=== PATIENT | female | born 1975 | race Caucasian/White ===

== ENCOUNTER 2022-12-31 05:57 | Day surgery (SDC) | payer OTHER ==
[2022-12-31 06:28] LABS: HCG URINE TEST NEGATIVE (NEGATIVE)
[2022-12-31] MEDS ORDERED: Lactated Ringers 1,000 ML IV SCH (06:30)
[2022-12-31] MEDS ORDERED: DIPRIVAN 200 MG/20 ML IV ONE ×2 (07:01→07:25)
[2022-12-31] MEDS ORDERED: Versed 2 MG/2 ML Injection ONE (07:01)
[2022-12-31] MEDS ORDERED: Xylocaine-Mpf 2% 5 Ml Vial ONE (07:01)
[2022-12-31 08:17] VITALS: BP 113/75; PULSE 79; O2SAT 95
--- NOTE | 2022-12-31 08:25 | OP ---
SURGERY DATE/TIME: 12/31/2022 0708 PREOPERATIVE DIAGNOSIS: Screening colonoscopy. POSTOPERATIVE DIAGNOSES: 1) Sigmoid colon polyp. 2) Diverticulosis. PROCEDURE: Colonoscopy. SURGEON: Nadir King M.D. ANESTHESIA: MAC by Hoang Mulligan CRNA. ESTIMATED BLOOD LOSS: Minimal. SPECIMENS: Hot forceps polypectomy from distal sigmoid colon. DESCRIPTION OF PROCEDURE: After informed written consent was obtained, the patient was taken to the endoscopy suite. She was placed in left lateral decubitus position and anesthesia was titrated to desired level of consciousness. Digital rectal exam showed normal sphincter tone and no internal lesions. The scope was inserted into the rectum and sequentially the entire colonic mucosa was traversed. The level of cecum was reached and verified with direct visualization of the ileocecal valve. Upon withdrawal scattered diverticula were noted. In the distal sigmoid colon there was a small sessile polyp which was grasped with forceps, cauterized and removed and sent to pathology. No other lesions were encountered. Prior to withdrawal retroflexion was performed and showed no internal lesions. The scope was removed. The patient was transferred to the recovery room in good condition.
== END 2022-12-31 08:15 | disposition home or self-care (01) ==
LOC: SDC 05:57
PROVIDERS: ATTEND Family Medicine
DX: Z12.11 Encounter for screening for malignant neoplasm of colon (principal); K63.5 Polyp of colon; K57.30 Diverticulosis of large intestine without perforation or abscess without bleeding
CPT/HCPCS: 36415; 81025; 88305; J2250; J2704

== ENCOUNTER 2023-01-07 06:43 | Emergency (ER) | payer OTHER ==
--- NOTE | 2023-01-07 07:30 | ERPHSYRPT ---
- History of Present Illness Time Seen by Provider: 01/07/23 07:42 Historian: patient Exam Limitations: no limitations Patient Subjective Stated Complaint: pt states while here at work she began having midsternal chest pain, denies radiation of pain. describes as stabbing pain. c/o nausea and "feeling hot all over". Triage Nursing Assessment: pt alert and oriented, answers questions approp. pt ambulates into room with steady gait noted. respirations nonlabored with lungs cta bilat. skin warm and dry. heart rate 100 on monitor, sinus rhythm. Physician History: Patient is a 47-year-old female presents to our ED with chest pain. Patient was at work when pain started. Pain described as a stabbing sensation it is pr imarily substernal. No radiation. Pain is associated with nausea. No vomiting. Patient states she also felt hot. No diaphoresis. Patient has a history of gastritis. She denies a history of GERD. No known heart conditions. Symptoms are moderate in intensity. No specific worsening or improving factors. Patient voices no other complaints or concerns at this time. Portions of this note were created with voice recognition technology. There may be grammatical, spelling, punctuation or sound alike errors Timing/Duration: today Activities at Onset: none Quality: stabbing Location: substernal Chest Pain Radiation: no radiation Severity of Pain-Max: moderate Severity of Pain-Current: mild Modifying Factors: Improves With: nothing Associated Symptoms: nausea Prior Chest Pain/Cardiac Workup: no prior chest pain Nitro Today/Relief: no nitro taken today Aspirin Treatment Today: no aspirin today (Patient took Excedrin which contains aspirin) Allergies/Adverse Reactions: lisinopril Adverse Reaction (Unknown, Verified 01/07/23 06:56) Cough Home Medications: PANTOPRAZOLE 40 mg Tablet [Protonix 40MG Tablet] 40 mg PO DAILY 06/23/15 [History] Topiramate 25 mg [Topamax 25 MG] 50 mg PO DAILY 06/23/15 [History] Bupropion HCl 150 mg Sr [Wellbutrin SR 150 MG] 150 mg PO DAILY 12/02/22 [History] Clonazepam [Klonopin] 1 mg PO HS PRN 12/02/22 [History] Ferrous Sulfate 325 mg [Feosol 325 mg] 325 mg PO DAILY 12/02/22 [History] Losartan Potassium 50 mg [Cozaar 50 MG] 100 mg PO DAILY 12/02/22 [History] Naproxen 500 mg [Naprosyn 500 MG] 500 mg PO DAILY PRN PRN 12/02/22 [History] Paroxetine HCl 20 mg [Paxil 20 MG] 20 mg PO DAILY 12/02/22 [History] Semaglutide [Ozempic] 0.5 mg SQ WEEKLY 12/02/22 [History] Hx Tetanus, Diphtheria Vaccination/Date Given: No Hx Influenza Vaccination/Date Given: Yes Hx Pneumococcal Vaccination/Date Given: No Immunizations Up to Date: No Travel Risk - International Travel Have you traveled outside of the country in past 3 weeks: No - Coronavirus Screening Are you exhibiting any of the following symptoms?: No Close contact with a COVID-19 positive Pt in past 14-21 Days: No - Vaccine Status Have you recieved a Covid-19 vaccination: Yes [employer] - Review of Systems Constitutional: No Symptoms, No Fever, No Chills Eyes: No Symptoms Ears, Nose, & Throat: No Symptoms Respiratory: No Symptoms, No Cough, No Dyspnea Cardiac: No Symptoms, No Chest Pain, No Edema, No Syncope Abdominal/Gastrointestinal: No Symptoms, No Abdominal Pain, No Nausea, No Vomiting, No Diarrhea Genitourinary Symptoms: No Symptoms, No Dysuria Musculoskeletal: No Symptoms, No Back Pain, No Neck Pain Skin: No Symptoms, No Rash Neurological: No Symptoms, No Dizziness, No Focal Weakness, No Sensory Changes Psychological: No Symptoms Endocrine: No Symptoms Hematologic/Lymphatic: No Symptoms Immunological/Allergic: No Symptoms All Other Systems: Reviewed and Negative - Past Medical History Pertinent Past Medical History: Yes Neurological History: Migraines ENT History: No Pertinent History Cardiac History: Hypertension Respiratory History: No Pertinent History Endocrine Medical History: No Pertinent History Musculoskeletal History: No Pertinent History GI Medical History: GERD, Gallbladder Disease, Ulcer, Other History: No Pertinent History Psycho-Social History: Anxiety, Depression Female Reproductive Disorders: No Pertinent History - Past Surgical History Past Surgical History: Yes Neuro Surgical History: No Pertinent History Cardiac: No Pertinent History Respiratory: No Pertinent History Gastrointestinal: Cholecystectomy Genitourinary: No Pertinent History Musculoskeletal: No Pertinent History Female Surgical History: No Pertinent History - Social History Smoking Status: Never smoker Exposure to second hand smoke: No Drug Use: none Patient Lives Alone: No - Female History Hx Last Menstrual Period: last month Hx Now: No - Nursing Vital Signs Nursing Vital Signs: Initial Vital Signs Temperature 97.8 F 01/07/23 06:44 Pulse Rate 100 H 01/07/23 06:44 Respiratory Rate 18 01/07/23 06:44 Blood Pressure 144/92 01/07/23 06:44 O2 Sat by Pulse Oximetry 100 01/07/23 06:44 Pain Scale Pain Intensity 0 - Physical Exam General Appearance: no apparent distress, alert Eye Exam: PERRL/EOMI, eyes nml inspection Ears, Nose, Throat Exam: normal ENT inspection, TMs normal, pharynx normal, moist mucous membranes Neck Exam: normal inspection, non-tender, supple, full range of motion Respiratory Exam: normal breath sounds, lungs clear, airway intact, No respiratory distress Cardiovascular Exam: regular rate/rhythm, normal heart sounds, normal peripheral pulses Gastrointestinal/Abdomen Exam: soft, No tenderness, No mass Back Exam: normal inspection, No CVA tenderness, No vertebral tenderness Extremity Exam: normal inspection, normal range of motion Neurologic Exam: alert, oriented x 3, cooperative, normal mood/affect, sensation nml, No motor deficits Skin Exam: normal color, warm, dry Lymphatic Exam: No adenopathy SpO2 Interpretation: normal SpO2: 98 O2 Delivery: Room Air - Course Nursing assessment & vital signs reviewed: Yes EKG Interpreted by Me: RATE (85), Sinus Rhythm, NORMAL AXIS, NORMAL INTERVALS - Radiology Exams Chest X-ray Interpretation: Teleradiologist Report (Normal chest x-ray) Ordered Tests: Active Orders 24 hr Category Date Time Status Band Cutter STAT Care 01/07/23 07:21 Active EKG-ER Only STAT Care 01/07/23 07:20 Active IV Insertion STAT Care 01/07/23 07:20 Active Pulse Oximetry (ED) STAT Care 01/07/23 07:20 Active CHEST 1 VIEW (PORTABLE) Stat Exams 01/07/23 07:21 Completed CBC W DIFF Stat Lab 01/07/23 07:00 Completed CMP Stat Lab 01/07/23 07:00 Completed D-DIMER QUANTITATIVE Stat Lab 01/07/23 07:00 Completed HCG QUALITATIVE, URINE Stat Lab 01/07/23 08:12 Completed NT PRO BNPII Stat Lab 01/07/23 07:00 Completed TROPONIN Q4H Lab 01/07/23 07:00 Completed TROPONIN Q4H Lab 01/07/23 09:30 Completed TROPONIN Q4H Lab 01/07/23 15:30 Ordered UA W/RFX UR CULTURE Stat Lab 01/07/23 08:12 Completed Lab/Rad Data: Laboratory Result Diagrams 01/07/23 07:00 01/07/23 07:00 Laboratory Results 01/07/23 01/07/23 01/07/23 Range/Units 09:30 08:12 08:12 WBC (4.0-10.5) x10^3/uL RBC (4.1-5.4) x10^6/uL Hgb (12.0-16.0) g/dL Hct (35-47) % MCV (78-100) fL MCH (26-32) pg MCHC (32-36) g/dL RDW (11.5-14.0) % Plt Count (150-450) x10^3/uL MPV (7.5-11.0) fL Gran % (36.0-66.0) % Immature Gran % (Auto) (0.00-0.4) % Nucleat RBC Rel Count (0.00-0.1) % Eos # (Auto) (0-0.5) x10^3/uL Immature Gran # (Auto) (0.00-0.03) x10^3u/L Absolute Lymphs (auto) (1.0-4.6) x10^3/uL Absolute Monos (auto) (0.0-1.3) x10^3/uL Absolute Nucleated RBC (0.00-0.01) x10^3u/L Lymphocytes % (24.0-44.0) % Monocytes % (0.0-12.0) % Eosinophils % (0.00-5.0) % Basophils % (0.0-0.4) % Absolute Granulocytes (1.4-6.9) x10^3/uL Basophils # (0-0.4) x10^3/uL D-Dimer (0.0-0.50) mg/L Sodium (137-145) mmol/L Potassium (3.5-5.1) mmol/L Chloride (98-107) mmol/L Carbon Dioxide (22-30) mmol/L Anion Gap (5-15) MEQ/L BUN (7-17) mg/dL Creatinine (0.52-1.04) mg/dL Estimated GFR ML/MIN Glucose (74-106) mg/dL Calcium (8.4-10.2) mg/dL Total Bilirubin (0.2-1.3) mg/dL AST (14-36) U/L ALT (0-35) U/L Alkaline Phosphatase (38-126) U/L Troponin I < 0.012 (0.000-0.034) ng/mL NT-Pro-B Natriuret Pep (<300) pg/mL Serum Total Protein (6.3-8.2) g/dL Albumin (3.5-5.0) g/dL Urine Color Yellow (Yellow) Urine Appearance Clear (Clear) Urine pH 5.5 (4.6-8.0) Ur Specific [place] 1.025 (1.005-1.030) Urine Protein Negative (Negative) Urine Glucose (UA) Negative (Negative) mg/dL Urine Ketones Negative (Negative) Urine Blood Trace (Negative) Urine Nitrite Negative (Negative) Urine Bilirubin Negative (Negative) Urine Urobilinogen 1.0 A (0.2) mg/dL Ur Leukocyte Esterase Negative (Negative) U Hyaline Cast (Auto) 3-5 A (0-2) /LPF Urine Microscopic RBC 3-5 (0-5) /HPF Urine Microscopic WBC 0-2 (0-5) /HPF Ur Epithelial Cells Few (None Seen) /HPF Urine Bacteria Few A (None Seen) /HPF Urine Culture Reflexed NO (NO) Urine HCG, Qual NEGATIVE (NEGATIVE) 01/07/23 01/07/23 01/07/23 Range/Units 07:00 07:00 07:00 WBC (4.0-10.5) x10^3/uL RBC (4.1-5.4) x10^6/uL Hgb (12.0-16.0) g/dL Hct (35-47) % MCV (78-100) fL MCH (26-32) pg MCHC (32-36) g/dL RDW (11.5-14.0) % Plt Count (150-450) x10^3/uL MPV (7.5-11.0) fL Gran % (36.0-66.0) % Immature Gran % (Auto) (0.00-0.4) % Nucleat RBC Rel Count (0.00-0.1) % Eos # (Auto) (0-0.5) x10^3/uL Immature Gran # (Auto) (0.00-0.03) x10^3u/L Absolute Lymphs (auto) (1.0-4.6) x10^3/uL Absolute Monos (auto) (0.0-1.3) x10^3/uL Absolute Nucleated RBC (0.00-0.01) x10^3u/L Lymphocytes % (24.0-44.0) % Monocytes % (0.0-12.0) % Eosinophils % (0.00-5.0) % Basophils % (0.0-0.4) % Absolute Granulocytes (1.4-6.9) x10^3/uL Basophils # (0-0.4) x10^3/uL D-Dimer 0.19 (0.0-0.50) mg/L Sodium (137-145) mmol/L Potassium (3.5-5.1) mmol/L Chloride (98-107) mmol/L Carbon Dioxide (22-30) mmol/L Anion Gap (5-15) MEQ/L BUN (7-17) mg/dL Creatinine (0.52-1.04) mg/dL Estimated GFR ML/MIN Glucose (74-106) mg/dL Calcium (8.4-10.2) mg/dL Total Bilirubin (0.2-1.3) mg/dL AST (14-36) U/L ALT (0-35) U/L Alkaline Phosphatase (38-126) U/L Troponin I < 0.012 (0.000-0.034) ng/mL NT-Pro-B Natriuret Pep 67.2 (<300) pg/mL Serum Total Protein (6.3-8.2) g/dL Albumin (3.5-5.0) g/dL Urine Color (Yellow) Urine Appearance (Clear) Urine pH (4.6-8.0) Ur Specific [place] (1.005-1.030) Urine Protein (Negative) Urine Glucose (UA) (Negative) mg/dL Urine Ketones (Negative) Urine Blood (Negative) Urine Nitrite (Negative) Urine Bilirubin (Negative) Urine Urobilinogen (0.2) mg/dL Ur Leukocyte Esterase (Negative) U Hyaline Cast (Auto) (0-2) /LPF Urine Microscopic RBC (0-5) /HPF Urine Microscopic WBC (0-5) /HPF Ur Epithelial Cells (None Seen) /HPF Urine Bacteria (None Seen) /HPF Urine Culture Reflexed (NO) Urine HCG, Qual (NEGATIVE) 01/07/23 01/07/23 Range/Units 07:00 07:00 WBC 8.6 (4.0-10.5) x10^3/uL RBC 5.14 (4.1-5.4) x10^6/uL Hgb 14.5 (12.0-16.0) g/dL Hct 44.6 (35-47) % MCV 86.8 (78-100) fL MCH 28.2 (26-32) pg MCHC 32.5 (32-36) g/dL RDW 13.5 (11.5-14.0) % Plt Count 259 (150-450) x10^3/uL MPV 11.4 H (7.5-11.0) fL Gran % 63.5 (36.0-66.0) % Immature Gran % (Auto) 0.2 (0.00-0.4) % Nucleat RBC Rel Count 0.0 (0.00-0.1) % Eos # (Auto) 0.06 (0-0.5) x10^3/uL Immature Gran # (Auto) 0.02 (0.00-0.03) x10^3u/L Absolute Lymphs (auto) 2.45 (1.0-4.6) x10^3/uL Absolute Monos (auto) 0.54 (0.0-1.3) x10^3/uL Absolute Nucleated RBC 0.00 (0.00-0.01) x10^3u/L Lymphocytes % 28.6 (24.0-44.0) % Monocytes % 6.3 (0.0-12.0) % Eosinophils % 0.7 (0.00-5.0) % Basophils % 0.7 (0.0-0.4) % Absolute Granulocytes 5.43 (1.4-6.9) x10^3/uL Basophils # 0.06 (0-0.4) x10^3/uL D-Dimer (0.0-0.50) mg/L Sodium 141 (137-145) mmol/L Potassium 3.9 (3.5-5.1) mmol/L Chloride 107 (98-107) mmol/L Carbon Dioxide 22 (22-30) mmol/L Anion Gap 15.8 H (5-15) MEQ/L BUN 14 (7-17) mg/dL Creatinine 0.96 (0.52-1.04) mg/dL Estimated GFR > 60.0 ML/MIN Glucose 96 (74-106) mg/dL Calcium 9.1 (8.4-10.2) mg/dL Total Bilirubin 0.80 (0.2-1.3) mg/dL AST 31 (14-36) U/L ALT 20 (0-35) U/L Alkaline Phosphatase 65 (38-126) U/L Troponin I (0.000-0.034) ng/mL NT-Pro-B Natriuret Pep (<300) pg/mL Serum Total Protein 7.9 (6.3-8.2) g/dL Albumin 4.3 (3.5-5.0) g/dL Urine Color (Yellow) Urine Appearance (Clear) Urine pH (4.6-8.0) Ur Specific [place] (1.005-1.030) Urine Protein (Negative) Urine Glucose (UA) (Negative) mg/dL Urine Ketones (Negative) Urine Blood (Negative) Urine Nitrite (Negative) Urine Bilirubin (Negative) Urine Urobilinogen (0.2) mg/dL Ur Leukocyte Esterase (Negative) U Hyaline Cast (Auto) (0-2) /LPF Urine Microscopic RBC (0-5) /HPF Urine Microscopic WBC (0-5) /HPF Ur Epithelial Cells (None Seen) /HPF Urine Bacteria (None Seen) /HPF Urine Culture Reflexed (NO) Urine HCG, Qual (NEGATIVE) - Progress Progress: improved Air Movement: good Progress Note: Patient a 47-year-old female presents to our ED with substernal chest pain. Work-up includes EKG which revealed normal sinus rhythm. No ischemic changes. Chest x-ray normal. CBC within normal limits. Electrolytes within normal limits. Renal function within normal limits. Total bili AST ALT and alk phos are within normal limits. hCG negative. proBNP negative. Troponin negative x2. Urinalysis negative. Patient reassessed she is currently asymptomatic. No indication for further work-up at this time. Will discharge home. Patient agrees to follow-up with primary care doctor within 48 hours for evaluation. Portions of this note were created with voice recognition technology. There may be grammatical, spelling, punctuation or sound alike errors 01/07/23 10:09 Patient's presenting problem is acute in nature. Complexity of problem addressed is moderate. Symptoms are acute, new diagnosis of chest pain with uncertain prognosis. No critical care time. Patient served as independent historian. No outside documents reviewed. Dr. Espino independently interpreted laboratory tests and EKG. Complexity of data reviewed and analyzed is moderate. Risk of complication and or risk morbidity/mortality of patient management is minimal. No controlled medications administered. No hospitalizations indicated. Plan of care discussed with patient. No social determinants of health to impede plan of care. Vital stable. Discharge diagnosis chest pain. Portions of this note were created with voice recognition technology. There may be grammatical, spelling, punctuation or sound alike errors Heart score is 3, risk of Mace is 0.9 to 1.7% 01/07/23 10:12 01/07/23 10:17 Blood Culture(s) Obtained: No Antibiotics given: No Counseled pt/family regarding: lab results, diagnosis, need for follow-up, rad results - Departure Departure Disposition: Home Clinical Impression: Chest pain Condition: Stable Critical Care Time: No Referrals: SABI HILLS MD [Primary Care Provider] - Follow up/PCP as directed Additional Instructions: Discharge/Care Plan [id number] STEELE was seen on 01/07/23 in the Emergency Room. The patient was counseled regarding Diagnosis,Lab results, Imaging studies, need for follow up and when to return to the Emergency Room. Prescriptions given: Discharge Note I have spoken with the patient and/or caregivers. I have explained the patient's condition, diagnosis and treatment plan based on the information available to me at this time. I have answered the patient's and/or caregiver's questions and addressed any concerns. The patient and/or caregivers have as good understanding of the patient's diagnosis, condition and treatment plan as can be expected at this point. The vital signs have been stable. The patient's condition is stable and appropriate for discharge from the emergency department. The patient will pursue further outpatient evaluation with the primary care physician or other designated or consulting physician as outlined in the discharge instructions. The patient and/or caregivers are agreeable to this plan of care and follow-up instructions have been explained in detail. The patient and/or caregivers have received these instruction. The patient/and or caregivers are aware that any significant change in condition or worsening of symptoms should prompt an immediate return to this or the closest emergency department or call 911.
[2023-01-07 07:55] LABS: Absolute Neutrophil Ct (ANC) 5.43 x10^3/uL (1.4-6.9); BASOPHIL % 0.7 % (0.0-0.4); Basophil (Absolute #) 0.06 x10^3/uL (0-0.4); Eosinophil % 0.7 % (0.00-5.0); Eosinophil (Absolute #) 0.06 x10^3/uL (0-0.5); Hematocrit 44.6 % (35-47); Hemoglobin 14.5 g/dL (12.0-16.0); IMMATURE GRAN # 0.02 x10^3u/L (0.00-0.03); IMMATURE GRAN % 0.2 % (0.00-0.4); Lymphocyte (Absolute #) 2.45 x10^3/uL (1.0-4.6); Lymphocytes % 28.6 % (24.0-44.0); Mean Cell Volume 86.8 fL (78-100); Mean Corpuscular Hemoglobin 28.2 pg (26-32); Mean Corpuscular Hgb Concent. 32.5 g/dL (32-36); Mean Platelet Volume 11.4 fL (7.5-11.0); Monocyte (Absolute #) 0.54 x10^3/uL (0.0-1.3); Monocytes % 6.3 % (0.0-12.0); Neutrophil % 63.5 % (36.0-66.0); Platelet Count 259 x10^3/uL (150-450); Red Blood Count 5.14 x10^6/uL (4.1-5.4); Red Cell Distribution Width 13.5 % (11.5-14.0); White Blood Count 8.6 x10^3/uL (4.0-10.5)
[2023-01-07 08:10] LABS: ALBUMIN 4.3 g/dL (3.5-5.0); ALKALINE PHOSPHATASE 65 U/L (38-126); ANION GAP 15.8 MEQ/L (5-15); BLOOD UREA NITROGEN 14 mg/dL (7-17); CHLORIDE 107 mmol/L (98-107); Calcium 9.1 mg/dL (8.4-10.2); Carbon Dioxide 22 mmol/L (22-30); Creatinine 1 0.96 mg/dL (0.52-1.04); EST GLOMERULAR FILTRATION RATE > 60.0 ML/MIN; Glucose 96 mg/dL (74-106); Potassium 3.9 mmol/L (3.5-5.1); SGOT/AST 31 U/L (14-36); SGPT/ALT 20 U/L (0-35); SODIUM 141 mmol/L (137-145); Total Protein 7.9 g/dL (6.3-8.2)
[2023-01-07 08:15] VITALS: PULSE 77
[2023-01-07 08:23] LABS: Appearance Clear (Clear); Bacteria Few /HPF (None Seen); Bilirubin Negative (Negative); Blood Trace (Negative); Epithelial Cells Few /HPF (None Seen); Glucose, Urine Negative (Negative); Ketones Negative (Negative); Leukocyte Esterase Negative (Negative); Nitrite Negative (Negative); Ph 5.5 (4.6-8.0); Protein,Urine Dip Negative (Negative); Specific Gravity 1.025 (1.005-1.030); WBC 0-2 /HPF (0-5)
[2023-01-07 08:24] LABS: HCG URINE TEST NEGATIVE (NEGATIVE)
[2023-01-07 08:26] LABS: ADD URINE CULTURE? NO (NO)
--- NOTE | 2023-01-07 08:59 | XRAY ---
Indication: Chest pain. Comparison: None Portable chest demonstrates normal heart, lungs, and bony thorax.
[2023-01-07 10:10] VITALS: BP 115/73
[2023-01-07 10:15] VITALS: O2SAT 98
== END 2023-01-07 10:19 | disposition home or self-care (01) ==
LOC: ED 06:43
DX: R07.9 Chest pain, unspecified (principal); R11.0 Nausea; I10 Essential (primary) hypertension; Z79.85 Long-term (current) use of injectable non-insulin antidiabetic drugs; Z79.899 Other long term (current) drug therapy
CPT/HCPCS: 36000; 36415; 71045; 80053; 81001; 81025; 83880; 84484; 85025; 85379; 93005; 93041; 94760; 99284